=== PATIENT | male | born 1990 | race African-American/Black ===

== ENCOUNTER 2019-01-16 18:06 | Emergency (ER) | payer SELFPAY | END 2019-01-16 18:45 | disposition home or self-care (01) | LOC: BURERS 18:06 | DX: M25.562 Pain in left knee (principal) | CPT/HCPCS: 99283 ==

== ENCOUNTER 2020-10-29 23:15 | Emergency (ER) | payer BC, SELFPAY ==
--- NOTE | 2020-10-30 07:30 | RAD ---
PORTABLE CHEST: Date: 10/29/2020 An AP portable film at 2348 hours shows a normal sized heart. There is no widening or shift of the me diastinum. The trachea is midline. The lungs are fully inflated and clear. No focal infiltrate, effus ion, or pneumothorax seen. The bony structures appear intact. IMPRESSION: No acute thoracic finding. POS: HOME
== END 2020-10-30 00:20 | disposition left against medical advice (07) ==
LOC: BURERS 23:15
DX: R05 Cough (principal); R06.2 Wheezing; V49.9XXA Car occupant (driver) (passenger) injured in unspecified traffic accident, initial encounter
CPT/HCPCS: 71045; 93005; 94640; J7620

== ENCOUNTER 2022-06-07 19:51 | Emergency (ER) | payer OTHER ==
[2022-06-07] MEDS ORDERED: Ketorolac Tromethamine 30 MG/ML VIAL ONE (20:18)
== END 2022-06-07 20:38 | disposition home or self-care (01) ==
LOC: BURERS 19:51
DX: M54.50 Low back pain, unspecified (principal)
CPT/HCPCS: 96372; 99283; J1885

== ENCOUNTER 2023-02-21 17:29 | Emergency (ER) | payer OTHER, SELFPAY ==
[2023-02-21] MEDS ORDERED: Ondansetron ODT 4 MG TAB ONE (18:23)
== END 2023-02-21 18:27 | disposition home or self-care (01) ==
LOC: BURERS 17:29
DX: R19.7 Diarrhea, unspecified (principal)
CPT/HCPCS: 99283; Q0162

== ENCOUNTER 2024-12-07 19:02 | Emergency (ER) | payer OTHER ==
[2024-12-07] MEDS ORDERED: hydrALAZINE 20 MG/ML VIAL ONE (19:27)
[2024-12-07 19:53] LABS: #Basophils 0.1 thou/uL (0.0-0.2); #Eosinophils 0.1 thou/uL (0.0-0.7); #Lymphocytes 1.7 thou/uL (1.20-3.40); #Monocytes 0.7 thou/uL (0.11-0.59); #Neutrophils 5.9 thou/uL (1.40-6.50); %Basophils 0.7 % (0.0-1.0); %Eosinophils 0.7 % (0.0-10.0); %Monocytes 8.1 % (0.0-10.0); %Neutrophils 70.5 % (42.0-75.0); Hematocrit 46.5 % (42.0-52.0); Hemoglobin 16.2 g/dL (14.0-18.0); Mean Corpuscular HGB CONC 34.9 g/dL (32.0-36.0); Mean Corpuscular Hemoglobin 29.4 pg (27.0-31.0); Mean Corpuscular Volume 84.2 fl (78.0-98.0); Mean Platelet Volume 6.9 fL (7.4-10.4); Platelet Count 262 10x3/uL (130-400); RBC Distribution Width 10.9 % (11.5-14.5); Red Blood Cell (RBC) Count 5.53 mill/uL (4.70-6.10); White Blood Cell (WBC) Count 8.3 10x3/uL (4.8-10.8)
[2024-12-07 20:08] LABS: ALT (SGPT) 59 U/L (Less than 45); AST (SGOT) 137 U/L (11-34); Albumin 4.8 g/dL (3.1-4.5); Alkaline Phosphatase 94 U/L (40-110); Anion Gap 15 mmol/L (10-20); BUN (Urea Nitrogen) 15 mg/dL (8.9-20.6); Bilirubin, Total 0.3 mg/dL (0.3-1.2); Calc. Creatinine Clearance 0 mL/min (70-130); Calcium 9.8 mg/dL (7.8-10.44); Carbon Dioxide 22 mmol/L (22-29); Chloride 107 mmol/L (98-107); Estimated GFR 86; Globulin 2.7 g/dL (2.4-3.5); Glucose 103 mg/dL (70-105); Potassium 4.2 mmol/L (3.5-5.1); Protein, Total 7.5 g/dL (6.0-8.3); Sodium 140 mmol/L (136-145)
[2024-12-07 20:10] LABS: Troponin I Less than 0.010 ng/mL (< 0.028)
[2024-12-07 20:27] LABS: Amphetamine Not Detected (NotDetected); Barbiturates Screen Not Detected (NotDetected); Benzodiazepine Screen Not Detected (NotDetected); Cocaine Metabolite Screen Detected (NotDetected); Methadone Not Detected (NotDetected); Methamphetamine Not Detected (NotDetected); Opiate Screen Not Detected (NotDetected); Oxycodone Screen Not Detected (NotDetected); Phencyclidine (PCP) Detected (NotDetected); THC/Cannabinoid Screen Not Detected (NotDetected); Tricyclic Screen Not Detected (NotDetected)
[2024-12-07] MEDS ORDERED: Metoprolol Tartrate 5 MG (5 mL) VIAL ONE (20:44)
== END 2024-12-07 21:55 | disposition home or self-care (01) ==
LOC: BURERS 19:02
DX: I10 Essential (primary) hypertension (principal); R29.700 NIHSS score 0; Z79.899 Other long term (current) drug therapy
CPT/HCPCS: 36415; 80053; 80306; 83605; 83880; 84484; 85025; 93005; 96374; 96375; J0360